=== PATIENT | female | born 1960 | race Caucasian/White ===

== ENCOUNTER → 2024-06-17 13:48 | Outpatient (REF) | payer MEDICARE, MEDICAID, SELFPAY | LOC: ANHLAB 13:48 | PROVIDERS: PCP Family Medicine; Visit Provider Plastic Surgery | DX: D04.4 Carcinoma in situ of skin of scalp and neck (principal) | CPT/HCPCS: 88305 ==

== ENCOUNTER 2025-03-23 11:01 | Outpatient (CLI) | payer MEDICARE, MEDICAID, SELFPAY ==
--- OUTSIDE RECORDS SUMMARY | 2024-05-13 12:30 | XMS_ITS ---
Author Organization [facility] [place] ([address]) Address [address] [place] [address] Care Team Providers Care Promotor Group Ticket Sales Name Role Phone Dr. 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
--- NOTE | 2025-03-23 11:30 | ECG_ITS ---
Test Date: 2025-03-23 11:24:08 Measurements Intervals Polo Rate: 69 P: 4 IN: 166 QRS: -35 QRSD: 98 T: -19 QT: 397 QTc: 428 Interpretive Statements SINUS RHYTHM LEFT AXIS DEVIATION LOW QRS VOLTAGE IN PRECORDIAL LEADS POSSIBLE ANTERIOR MYOCARDIAL INFARCTION CONSIDER INFERIOR INFARCT, AGE INDETERMINATE BASELINE ARTIFACT- I, II, III, AVR, AVL, AVF, V3-V6 ABNORMAL ECG No previous ECG available for comparison Electronically Signed On 03-23-2025 11:46:56 CDT by Jabari Jeff D.O.
--- OUTSIDE RECORDS SUMMARY | 2025-03-23 11:40 | XMS_ITS | Encounter Summary ---
Author Organization [facility] Address [address] [place] [address] Phone Care Team Providers Care Breakdown Worker Name Role Phone Giovany Wilder MD Primary Care Provider [phone] Reason for Referral * Radiology Services (Routine) - Closed Specialty Diagnoses / Procedures Referred By Zacarias t Referred To Contact Radiology Diagnoses Angina pectoris Encounter for preprocedural cardiovascular examination Procedures EKG 12 LEAD Ann Carl MD Phone: tel: fax: Referral ID Status Reason Start Date Expiration Date Visits Re quested Visits Authorized [id number] Closed 10/13/2020 1 1 TH POLICY NURSE Encounter Details Date Type Department Care Team (Latest Contact Info) Description 10/13/2020 Transcribe Orders [facility] Preop/Pacu II [address] [place] [address] Ann Carl MD [address] [facility] [place] [address] Pre-op testing (Primary Dx); Angina pectoris (HCC); Encounter for preprocedural cardiovascular examination Social History Tobacco Use Types Packs/Day Years Used Date Smoking Tobacco: Former Cigarettes 1 15 1 986 - 2000 Smokeless Tobacco: Never Alcohol Use Standard Drinks/Week Comments Never 0 (1 standard drink = 0.6 oz pur e alcohol) Sexually Active [employer] Partners Comments Yes Male Comments Unknown Sex and Gender Information Value Date Recorded Sex Assigned at Not on file Legal Sex Female 7:59 PM CDT Gender Identity Not on file Sexual Orientation Not on file COVID-19 Exposure Response Date Recorded In the last month, have you been in contact with someone who was confirmed or suspected to have Coronavirus / COVID-19? No / Unsure 10/16/2020 11:29 AM CDT documented as of this encounter Plan of Treatment Not on file documented as of this encounter Results * EKG 12 LEAD (10/16/2020 11:51 AM CDT) Ventricular Rate BPM EXTERNAL EKG Atrial Rate BPM EXTERNAL EKG P-R Interval 118 ms EXTERNAL EKG QRS Duration 86 ms EXTERNAL EKG Q-T Duration 434 ms EXTERNAL EKG QTC CALCULATION 495 ms EXTERNAL EKG P Mcconnell 4 degrees EXTERNAL EKG R Mcconnell -27 degrees EXTERNAL EKG T Mcconnell -26 degrees EXTERNAL EKG 10/16/2020 11:5 1 AM CDT Impressions EXTERNAL EKG - 10/18/2020 11:45 AM CDT Sinus rhythm Leftward axis Possible extensive infarct - age undetermined Comparison Summary: No serial comparison made Summary: Abnormal ECG Confirmed by [place] [id number] on 10/18/2020 11:45:14 AM Narrative Procedure Note Ann Carl MD - 10/18/2020 IMPRESSION: Sinus rhythm Leftward axis Possible extensive infarct - age undetermined Comparison Summary: No serial comparison made Summary: Abnormal ECG Confirmed by [place] [id number] on 10/18/2020 11:45:14 AM us Ann Carl MD IMG ECG ORDERABLES Final R esult EXTERNAL EKG * SARS-COV-2 BY MOLECULAR (10/16/2020 11:45 AM CDT) SARSCOV2 NOT DETECTED (Referen ce Range for this test is Not Detected ) [facility] THERMOFISHER FAST DX 10/17/2020 7:27 AM CDT [facility] Comment:This test was perfor med by a RT-PCR method. Other NASOPHARYNGEAL STRUCTURE / Unknown Non-Phlebotomy Collection / Unknown 10/16/2020 11:45 AM CDT 10/16/2020 12:09 PM CDT Narrative [facility] - 10/17/2020 7:27 AM CDT Authorized Fact Sheets about this test for providers and patients are available at: https://www.fda.gov/medical-devices/vkiozrbmb-juwnviffbl-gcsstzc-devices/emergen -us e-authorizations us Ann Carl MD MICROBIOLOGY - GENERAL ORD ERABLES Final Result [facility] [address] [place] [address], [place] * PROTIME (PT) (PROTHROMBIN TIME) (10/16/2020 11:45 AM CDT) PROTIME-PATIENT 13.5 11.6 - 14.8 sec 10/16/2020 12:27 PM CDT [facility] INR 1.1 0.9 - 1.2 10/16/2020 12:27 PM CDT [facility] Comment: Therapeutic Ranges INR = 2.0-3.0: Venous thromb, atrial fib, pul embolism, tissue heart valve, ami. INR = 2.5-3.5: Mechanical heart valve Critical value for INR is >/= 4.5 Blood Venipuncture / Unknown 10/16/2020 11:45 AM CDT 10/16/2020 12:12 PM CDT us Ann Carl MD HEMATOLOGY ORDERABLES Rosa l Result [facility] [address] [place] [address] * (ABNORMAL) BASIC METABOLIC PANEL W/ CALCIUM TOTAL (10/16/2020 11:45 AM CDT) SODIUM 138 136 - 144 mmol/L 10/16/2020 1:03 PM [facility] POTASSIUM 3.3(L) 3.5 - 5.1 mmol/L 10/16/2020 1:03 PM T [facility] CHLORIDE 101 100 - 110 mmol/L 10/16/2020 1:03 PM [facility] CO2, VENOUS 27 22 - 32 mmol/L 10/16/2020 1:03 PM [facility] ANION GAP 13.3 8.0 - 20.0 mmol/L 10/16/2020 1:03 PM [facility] GLUCOSE 197(H) 70 - 99 mg/dL 10/16/2020 1:03 PM [facility] BUN 29(H) 8 - 23 mg/dL 10/16/2020 1:03 PM [facility] CREATININE, BLOOD 1.42(H) 0.60 - 1.10 mg/dL 10/16/2020 1:03 PM [facility] BUN/CREATININE RATIO 20 12 - 20 ratio 10/16/2020 1:03 PM [facility] CALCIUM 9.6 8.9 - 10.3 mg/dL 10/16/2020 1:03 PM [facility] GFR, EST. NONAFRICAN 38(L) >=60 10/16/2020 1:03 PM [facility] GFR, EST. 46(L) >=60 10/16/2020 1:03 PM [facility] Comment: Creatinine Clearance is the preferred criteria for selecting drug dose adjustments in renally impaired patients. The GFR is provided as additional pertinent clinical information. GFR is reported in mL/min/1.73 sq m. IS THE PATIENT REQUIRED TO BE FASTING? No 10/16/2020 1:03 PM [facility] Blood Venipuncture / Unknown 10/16/2020 11:45 AM CDT 10/16/2020 12:12 PM CDT us Ann Carl MD CHEMISTRY ORDERABLES Final Result [facility] [address] [place] [address] documented in this encounter Visit Diagnoses Diagnosis Pre-op testing- Primary Preoperative examination, unspecified Angina pectoris Other and unspecified angina pectoris Encounter for preprocedural cardiovascular examination Pre-operative cardiovascular examination Angina pectoris Other and unspecified angina pectoris Encounter for preprocedural cardiovascular examination Pre-operative cardiovascular examination documented in this encounter Care Teams Breakdown Worker Relationship Specialty Start Date End Date Giovany Wilder MD [facility] [place] [address] PCP - General Family Medicine 10/16/20 documented as of this encounter
--- OUTSIDE RECORDS SUMMARY | 2025-03-23 11:40 | XMS_ITS | Encounter Summary ---
Author Organization [facility] [id number] [facility] Address [address] [place] [phone] Phone Care Team Providers Care Skates Operator Name Role Phone Giovany Wilder MD Primary Care Provider [phone] Reason for Visit * Reason Comments Med Change Request Encounter Details Date Type Department Care Team (Late st Contact Info) Description 03/03/2024 Refill [place] [facility] [employer] [employer] [address] [address] Tirso East DO [address] [address] Social History Tobacco Use Types Packs/Day Years Used Date Smoking Tobacco: Former Alcohol Use Standard Drinks/Week Comments Yes 0 (1 standard drink = 0.6 oz pure alcohol) Alcoholic Drinks/day: Occasional social drink Comments Unknown Sex and Gender Information Value Date Recorded Sex Assigned at Not on file Legal Sex Female 2:50 PM EDT Gender Identity Not on file Sexual Orientation Not on file documented as of this encounter Plan of Treatment Upcoming Encounters Date Type Department Care Team (Late st Contact Info) Description 05/05/2025 2:15 PM CDT Office Visit [place] [facility] [address] [place] [address] Tirso East DO 1265 [facility] 1 [place] [address] documented as of this encounter Visit Diagnoses Not on filedocumented in this encounter Care Teams Skates Operator Relationship Specialty Start Date End Date Giovany Wilder MD [address] [place] [address] PCP - General Family Medicine 01/10/23 documented as of this encounter
--- OUTSIDE RECORDS SUMMARY | 2025-03-23 11:40 | XMS_ITS | Encounter Summary ---
Author Organization [facility] [employer] [facility] Address [address] [place] [phone] Phone Care Team Providers Care Spring Former Hand Name Role Phone Giovany Wilder MD Primary Care Provider [phone] Reason for Visit * Reason Comments Med Refill Encounter Details Date Type Department Care Team (Late st Contact Info) Description 02/15/2021 [facility]ill [place] [facility] [address] [address] Tirso East DO [address] [address] Social History Tobacco Use Types [...] Description 05/05/2025 2:15 PM CDT [facility] [place] [facility] [address] [place] [address] Tirso East DO 1265 [facility] 1 [place] [address] documented as of this encounter Visit Diagnoses Not on filedocumented in this encounter Care Teams Spring Former Hand Relationship Specialty Start Date End Date Giovany Wilder MD [address] [place] [address] PCP - General Family Medicine 01/10/23 documented as of this encounter
--- OUTSIDE RECORDS SUMMARY | 2025-03-23 11:40 | XMS_ITS | Clinical Summary ---
Author Organization [facility] Address [address] [address] Care Team Providers Care Splicer Machine Operator Name Role Phone Giovany Wilder MD Primary Care Provider [phone] Medications dexamethasone (DECADRON) 1 MG tablet Take 1 tablet (1 mg total) by mouth every night 1 tablet 2 Active sodium bicarbonate 650 MG tablet TAKE 1 TABLET BY MOUTH TWICE A DAY 180 tablet 1 2 Active ALPRAZolam (XANAX) 0.25 MG tablet Take 1 tablet (0.25 mg total) by mouth at night if needed for anxiety 30 tablet 1 3 Active metoprolol succinate XL (TOPROL XL) 25 MG 24 hr tablet TAKE 1 TABLET BY MOUTH EVERY NIGHT, DO NOT CRUSH OR CHEW 90 tablet 1 3 Active torsemide (DEMADEX) 10 MG tablet Take 1 tablet (10 mg total) by mouth 3 times weekly: Fri and Friday morning 45 tablet 1 4 Active spironolactone (ALDACTONE) 25 MG tablet Take 1 tablet (25 mg total) by mouth 1 (one) time each day in the morning 90 tablet 1 4 Active torsemide (DEMADEX) 20 MG tablet TAKE 1 TABLET BY MOUTH 1 TIME EACH DAY IN THE MORNING. 90 tablet 1 5 Active Semaglutide, 1 MG/DOSE, (Ozempic, 1 MG/DOSE,) 2 MG/1.5ML solution pen-injector Inject 1 mg under the skin per week 12 mL 1 5 Active calcitriol (ROCALTROL) 0.5 MCG capsule TAKE 1 CAPSULE (0.5 MCG TOTAL) BY MOUTH ONCE DAILY 90 capsule 1 5 Active paricalcitol (ZEMPLAR) 1 MCG capsule TAKE 1 CAPSULE (1 MCG TOTAL) BY MOUTH EVERY MORNING 30 capsule 5 5 Active paricalcitol (ZEMPLAR) 1 MCG capsule TAKE 1 CAPSULE (1 MCG TOTAL) BY MOUTH EVERY MORNING 90 capsule 1 5 025 Discontinued calcitriol (ROCALTROL) 0.5 MCG capsule Take 1 capsule (0.5 mcg total) by mouth 1 (one) time each day 90 capsule 1 5 025 Discontinued Encounters Date Type Department Care Team Description 03/14/[address] [address] Tirso East DO 03/11/[address] [address] Tirso East DO from Last 3 Months Social History Tobacco Use Types Packs/Day Years Used Date Smoking Tobacco: Former Alcohol Use Standard Drinks/Week Comments Yes 0 (1 standard drink = 0.6 oz pure alcohol) Alcoholic Drinks/day: Occasional social drink Comments Unknown Sex and Gender Information Value Date Recorded Sex Assigned at Not on file Legal Sex Female 2:50 PM EDT Gender Identity Not on file Sexual Orientation Not on file Last Filed Vital Signs Vital Sign Reading Time Taken Comments Blood Pressure 130/80 11/04/2024 2:07 PM CDT Pulse 84 11/04/2024 2:07 PM CDT Temperature 36.7 C (98 F) 11/04/2024 2:07 PM CDT Respiratory Rate 18 11/04/2024 2:07 PM CDT Oxygen Saturation 99% 11/04/2024 2:07 PM CDT Inhaled Oxygen Concentration - - Weight 61.2 kg (135 lb) 11/04/2024 2:07 PM CDT Height 157.5 cm (5' 2) 10/04/2022 10:08 AM RESOURCE PROTECTION SPECIALIST Body Mass Index 24.69 10/04/2022 10:08 AM RESOURCE PROTECTION SPECIALIST Plan of Treatment Upcoming Encounters Date Type Department Care Team (Late st Contact Info) Description 05/05/2025 2:15 PM CDT Office Visit [facility] [address] [place] [address] [address] [place] [phone] Tirso East DO 1265 [facility] [address] [place] [address] Health Maintenance Due Date Last Done Comments Breast Cancer Screening 1960 Pneumococcal Vaccine: 50+ Ye ars (1 of 2 - PCV) 1978 Colorectal Cancer Screening: Annual FOBT 2008 Colorectal Cancer Screening: Sigmoidoscopy 2008 Hepatitis B Vaccine (1 of 3 - Risk 3-dose series) 2019 12/03/2017, 07/04/2017, 06/05/2017 Diabetes: Ophthalmology Exam 01/15/2021 Diabetes: Pedal Pulse Checked 01/15/2021 Diabetes: Sensory Foot Exam 01/15/2021 Diabetes: Visual Foot Exam 01/15/2021 Diabetes: Hemoglobin A1C 02/21/202511/22/2 025, 05/21/2024, 02/03/2024, Additional history exists Influenza Vaccine (#1) 2025 4, 08/04/2022, 05/10/2022, Additional history exists Colorectal Cancer Screening: Colonoscopy 10/02/2032 10/02/2022 Insurance Medicaid [place] [facility] Medicare Care Teams Splicer Machine Operator Relationship Specialty Start Date End Date Giovany Wilder MD [address] [address] PCP - General Family Medicine 01/10/23
--- OUTSIDE RECORDS SUMMARY | 2025-03-23 11:40 | XMS_ITS | Encounter Summary ---
Author Organization [facility] [employer] [facility] Address [address] [place] [phone] Phone Care Team Providers Care Lottery Manager Name Role Phone Giovany Wilder MD Primary Care Provider [phone] Reason for Visit * Reason Comments Med Refill Encounter Details Date Type Department Care Team (Late st Contact Info) Description 01/17/2021 [facility]ill [place] [facility] [address] [phone] Tirso East DO [address] [address] Social History Tobacco Use Types [...] Description 05/05/2025 2:15 PM CDT Office Visit [place] [facility] [address] [phone] Tirso East DO 1265 [facility] 1 [place] [address] documented as of this encounter Visit Diagnoses Not on filedocumented in this encounter Care Teams Lottery Manager Relationship Specialty Start Date End Date Giovany Wilder MD [address] [place] [address] PCP - General Family Medicine 01/10/23 documented as of this encounter
--- OUTSIDE RECORDS SUMMARY | 2025-03-23 11:40 | XMS_ITS | Encounter Summary ---
Author Organization [facility] Address [address] [place] [phone] Phone Care Team Providers Care Washer Hand Name Role Phone Giovany Wilder MD Primary Care Provider [phone] Reason for Visit * Reason Comments Med Refill Encounter Details Date Type Department Care Team (Late st Contact Info) Description 01/24/2021 Refill [place] [email or web address] [place] [phone] Tirso East DO [address] [address] Social History Tobacco Use Types [...] Description 05/05/2025 2:15 PM CDT Office Visit [place] [email or web address] [email or web address] [address] [place] [address] Tirso East DO 1265 [facility] 1 [place] [address] documented as of this encounter Visit Diagnoses Not on filedocumented in this encounter Care Teams Washer Hand Relationship Specialty Start Date End Date Giovany Wilder MD [address] [place] [address] PCP - General Family Medicine 01/10/23 documented as of this encounter
--- OUTSIDE RECORDS SUMMARY | 2025-03-23 11:40 | XMS_ITS | Clinical Summary ---
Author Organization [facility] A dministration Address [address] [place] [address] Care Team Providers Care Linen Room Houseperson Name Role Phone Unavailable Primary Care Provider Unavailabl e Allergies Active Allergy Reactions Criticality Noted Date Comments Adhesive Tape-Silicones Rash Low 10/27/2023 Cephalexin Hives High 10/27/2023 Cyclobenzaprine Dizziness Low 10/27/2023 Divalproex Muscle Pain Low 10/27/2023 Hydromorphone Nausea and Vomiting Low 10/27/2023 Latex Itching Low 10/27/2023 Naltrexone Itching Low 10/27/2023 Nsaids (Non-Steroidal Anti-Inflammatory Drug) Renal Dysfunctions Medium 10/27/2023 Penicillins Unknown 10/27/2023 Pentazocine Hives High 10/27/2023 Propranolol Dizziness Low 10/27/2023 Rizatriptan Itching Low 10/27/2023 Sulfa (Sulfonamide Antibiotics) Hives High 10/03 Sumatriptan Dizziness Low 10/27/2023 Talwin Compound Hives High 10/27/2023 Topiramate Itching Low 10/27/2023 Tramadol Nausea and Vomiting Low 10/27/2023 Venlafaxine Hives High 10/27/2023 Medications albuterol sulfate HFA 90 mcg/actuation aerosol inhaler Take 2 Puffs by inhalation every 6 hours as needed for Shortness of Breath. Active aspirin (ECOTRIN EC) 81 mg Tablet, Delayed Release (E.C.) Take 81 mg by mouth daily. Active benzonatate (TESSALON) 100 mg capsule Take 100 mg by mouth 3 times daily. Active cholecalciferol , Vitamin D3, (VITAMIN D3) 25 mcg (1,000 unit) Capsule Take by mouth daily. Active calcitRIOL (ROCALTROL) 0.25 mcg capsule Take 0.25 mcg by mouth daily. Active famotidine (PEPCID) 10 mg tablet Take 10 mg by mouth 2 times daily. Active FLUoxetine (PROzac) 10 mg capsule Take 10 mg by mouth daily. Active lamoTRIgine (LaMICtal) 25 mg tablet Take 25 mg by mouth 2 times daily. Active levothyroxine 25 mcg tablet Take 25 mcg by mouth daily in the morning. Active metoprolol succinate (TOPROL XL) 25 mg Extended Release 24 hour tablet Take 25 mg by mouth daily. Active montelukast (SINGULAIR) 10 mg tablet Take 10 mg by mouth daily at bedtime. Active ondansetron (ZOFRAN ODT) 4 mg Tablet, Rapid Dissolve Take 4 mg by mouth every 8 hours as needed for Nausea/Emesis. Dissolve tablet on top of tongue, then swallow with saliva. Active oxyCODONE-aceta minophen (PERCOCET) 7.5-325 mg Tablet Take 1 Tablet by mouth every 6 hours as needed for Pain, Moderate. Active pantoprazole (PROTONIX) 40 mg Tablet, Delayed Release (E.C.) Take 40 mg by mouth daily. Active paricalcitoL (ZEMPLAR) 1 mcg Capsule Take 1 mcg by mouth daily. Active protriptyline (VIVACTIL) 5 mg tablet Take 5 mg by mouth 3 times daily. Active spironolactone (ALDACTONE) 100 mg tablet Take 100 mg by mouth daily. Active torsemide (DEMADEX) 20 mg tablet Take 20 mg by mouth daily. Active traZODone (DESYREL) 50 mg tablet Take 50 mg by mouth daily at bedtime. Active dulaglutide (Trulicity) 1.5 mg/0.5 mL injection Inject 1.5 mg by subcutaneous injection every 7 days. Active umeclidinium-vi lanteroL (ANORO ELLIPTA) 62.5-25 mcg/actuation Disk with Device Take 1 Puff by inhalation daily in the morning. Active Zonisamide (ZONEGRAN) 100 mg capsule Take 100 mg by mouth daily. Active linaCLOtide (LINZESS) 72 mcg Capsule capsule Take 72 mcg by mouth daily before breakfast. Active diazePAM (Valium) 5 mg tabletIndicatio ns:Neck pain Take 1 tab PO one hour prior to MRI and then one upon arrival to MRI. 2 Tablet Active Active Problems No known active problems Encounters Date Type Department Care Team Description 12/22/2024 External Device Data STL ABSTRACTION Provider, Abstract 12/21/2024 External Device Data STL ABSTRACTION Provider, Abstract from Last 3 Months Family History Medical History Relation Name Comments Cancer Father Diabetes Father Heart Disease Father High Cholesterol Father Hypertension Father Hypertension Maternal Aunt Cancer Maternal Grandfather Other Maternal Grandfather tobacco use Hypertension Maternal Grandmother Cancer Maternal Uncle Blood Clots Mother Cancer Mother Diabetes Mother Heart Disease Mother Other Mother tobacco use Heart Disease Paternal Grandfather Hypertension Paternal Grandfather Other Paternal Grandfather tobacco use Hypertension Paternal Grandmother Diabetes Sister Heart Disease Sister High Cholesterol Sister Hypertension Sister Other Sister tobacco use Relation Name Status Comments Father Maternal Aunt Alive Maternal Grandfather Maternal Grandmother Maternal Uncle Alive Mother Paternal Grandfather Paternal Grandmother Sister Social History Tobacco Use Types Packs/Day Years Used Date Smoking Tobacco: Never Smokeless Tobacco: Former Quit: 1998 Tobacco Cessation:Counseling Given: Not Answered Comments:Quit smoking in 1995, was 1 pack a day Alcohol Use Standard Drinks/Week Comments Never 0 (1 standard drink = 0.6 oz pur e alcohol) Comments Unknown Sex and Gender Information Value Date Recorded Sex Assigned at Not on file Legal Sex Female 1:54 AM RISK MANAGEMENT INTERN Gender Identity Not on file Sexual Orientation Not on file Last Filed Vital Signs Vital Sign Reading Time Taken Comments Blood Pressure 128/87 01/06/2024 10:50 AM CDT Pulse 82 01/06/2024 10:50 AM CDT Temperature 36.5 C (97.7 F) 01/06/2024 10:50 AM CDT Respiratory Rate - - Oxygen Saturation - - Inhaled Oxygen Concentration - - Weight 56.3 kg (124 lb 3.2 oz) 01/06/2024 10:50 AM CDT Height 157.5 cm (5' 2) 01/06/2024 10:50 AM CDT Body Mass Index 22.72 01/06/2024 10:50 AM CDT Plan of Treatment Health Maintenance Due Date Last Done Comments DIABETES ANNUAL RETINAL EXAM 1977 DIABETES MICROALBUMIN ANNUAL SCREEN 1977 LDL CHOLESTEROL ANNUAL 1977 DTAP/TDAP/TD VACCINES (1 - Tdap) 1978 PNEUMOCOCCAL VACCINE 50+ YEA RS (1 of 2 - PCV) 1978 FIT-DNA Q 3 years 2004 FIT/FOBT Q 1 year 2004 Flex Sig/CT Colonography Q 5 years 2004 ZOSTER VACCINE (1 of 2) 2009 RSV VACCINE (60+ or ) (1 - Risk 60-74 years 1-dose series) 2019 DIABETES ANNUAL FOOT EXAM 07/08/2023 07/08/2022 DIABETES HBA1C Q 6 MONTHS 05/21/20242023, 05/21/2023, 12/24/2022 BREAST CANCER SCREENING 12/26/2024 12/27/19, 12/27/2023, 12/27/2020, Additional history exists INFLUENZA VACCINE (#1) 2025 OSTEOPOROSIS SCREENING 05/23/2025 05/23/2020, 2017 COLORECTAL SCREENING 10/02/2032 10/02/2022, 10/02/2022, 09/18/2015, Additional history exists Colorectal Cancer Screening 10/02/2032 Insurance DUAL COMPLETE PPO [facility]NP [facility] [id number] [address] [place]ID [place]
--- OUTSIDE RECORDS SUMMARY | 2025-03-23 11:40 | XMS_ITS | Clinical Summary ---
Author Organization [facility] Address [address] [address] Phone Care Team Providers Care Member Of The Legislative Assembly Name Role Phone Giovany Wilder MD Primary Care Provider Allergies Active Allergy Reactions Criticality Noted Date Comments Hydromorphone Vomiting 10/19/2020 Divalproex Sodium Other (see Comments) 10/20/19 21 trimmers Morphine-Naltrexone Itching 10/19/2020 Hydrocodone Other (see Comments) 10/19/2020 Dizzy and fall Cephalexin Itching 10/19/2020 Penicillins Unknown 10/19/2020 Propranolol Itching 10/19/2020 Rizatriptan Itching 10/19/2020 Sulfa Antibiotics Itching 10/19/2020 Sumatriptan Itching 10/19/2020 Pentazocine Itching 10/19/2020 Topiramate Itching 10/19/2020 Tramadol Hives 10/19/2020 Venlafaxine Itching 10/19/2020 Medications isosorbide mononitrate (IMDUR) 30 MG TABLET SR 24 HR Take 30 mg by mouth every morning. Active vitamin b-12 (CYANOCOBALAMIN ) 100 MCG Tablet Take 100 mcg by mouth daily. Active busPIRone (BUSPAR) 10 MG Tablet Take 10 mg by mouth 2 times daily. Active aspirin EC 81 MG Tablet Delayed Response Take 81 mg by mouth daily. Active hydrOXYzine (ATARAX) 50 MG Tablet Take 50 mg by mouth 4 times daily. Active torsemide (DEMADEX) 10 MG Tablet Take 10 mg by mouth daily. Active spironolactone (ALDACTONE) 25 MG Tablet Take 25 mg by mouth daily. Active zonisamide (ZONEGRAN) 25 MG Capsule Take 25 mg by mouth daily. Active FLUoxetine (PROZAC) 40 MG Capsule Take 40 mg by mouth daily. Active protriptyline (VIVACTIL) 5 MG Tablet Take 5 mg by mouth nightly. Active felodipine (PLENDIL) 2.5 MG TABLET SR 24 HR Take 2.5 mg by mouth daily. Active omeprazole (PriLOSEC) 40 MG CAPSULE DELAYED RELEASE Take 40 mg by mouth Every other day. Active Multiple Vitamin (MULTIVITAMIN PO) Take by mouth daily. Active paricalcitol (ZEMPLAR) 1 MCG Capsule Take 1 mcg by mouth daily. Active Cholecalciferol (VITAMIN D3 PO) Take 5,000 Units by mouth daily. Active Dulaglutide (Trulicity) 3 MG/0.5ML Solution Pen-injector 3 mg by Subcutaneous route every 7 days. Active tiZANidine (ZANAFLEX) 4 MG Tablet Take 4 mg by mouth every 6 hours as needed. Active oxyCODONE 10 MG Tablet Take 10 mg by mouth every 6 hours as needed for Moderate or more severe pain. Active ticagrelor (BRILINTA) 90 MG Tablet Take 1 Tablet by mouth 2 times daily. 180 Tablet 3 1 Active Family History Medical History Relation Name Comments Anxiety disorder Father Congestive Heart Failure Father Depression Father Diabetes Father Heart Attack Father Congestive Heart Failure Mother Diabetes Mother Relation Name Status Comments Father Mother Social History Tobacco Use Types Packs/Day Years Used Date Smoking Tobacco: Former Cigarettes 1 15 1 986 - 2000 Smokeless Tobacco: Never Alcohol Use Standard Drinks/Week Comments Never 0 (1 standard drink = 0.6 oz pur e alcohol) Sexually Active Control Partners Comments Yes Male Comments No Sex and Gender Information Value Date Recorded Sex Assigned at Not on file Legal Sex Female 7:59 PM CDT Gender Identity Not on file Sexual Orientation Not on file Last Filed Vital Signs Vital Sign Reading Time Taken Comments Blood Pressure 133/73 04/28/2023 9:07 PM CDT Pulse 88 04/28/2023 9:07 PM CDT Temperature 35.8 C (96.5 F) 04/28/2023 9:07 PM CDT Respiratory Rate 16 04/28/2023 9:07 PM CDT Oxygen Saturation 100% 04/28/2023 9:07 PM CDT Inhaled Oxygen Concentration - - Weight 54.4 kg (120 lb) 04/28/2023 9:07 PM CDT Height 157.5 cm (5' 2) 04/28/2023 9:07 PM CDT Body Mass Index 21.95 04/28/2023 9:07 PM CDT Plan of Treatment Health Maintenance Due Date Last Done Comments DEXA Bone Density 1959 Hepatitis C Virus (HCV) Screening 1959 Mammogram 1959 TdaP Immunization 1959 Cologuard 2004 Colonoscopy 2004 Colorectal Cancer Screening 2004 Immunochemical Fecal Occult Blood 2004 Pneumococcal Immunization (50+ years) (1 of 1 - PCV) 2009 Zoster Immunization (1 of 2) 2009 SARS-COV-2 Immunization (1 - ) 04/04/2024 Influenza Immunization (#1) 04/04/20250 02/2022, 05/04/2021, 05/04/2020, Additional history exists Respiratory Syncytial Virus (RSV) Immunization (Adult) (1 - 1-dose 75+ series) 2034 Hepatitis B Immunization Completed 018, 07/04/2017, 06/05/2017 Human Papillomavirus (HPV) Immunization Aged Out No longer eligible based on patient's age to complete this topic Meningococcal Immunization (ACWY) Aged Out No longer eligible based on patient's age to complete this topic Rotavirus Immunization Aged Out No lo nger eligible based on patient's age to complete this topic Medical Devices Implanted Type Area Splitting Machine Operator Helper Device Identifier Shelf Expiration Date Model / Serial / Lot Stent Coronary Alina Xience Everolimus Eluting 2.3tle33th - [id number] Implanted:Qty: 1 on 10/19/2020 by Ann Carl MD at [facility] IMPLANT N/A: Coronary [employer] 08/04/2021 [id number] / / [id number] Device Clsr 70cm 6fr Angio-Seal Vip .035in Vasc Collagen Valuelink Gw Insertion Shligia Ware - [id number] Implanted:Qty: 1 on 10/19/2020 by Ann Carl MD at [facility] IMPLANT Right: Johnie DavenportChronogolf 07/03/2021 [id number] / [id number] Insurance MEDICAID [place] MEDICARE C [facility] MEDICARE C [facility] [place]ICAID [place] Care Teams Member Of The Legislative Assembly Relationship Specialty Start Date End Date Giovany Wilder MD [address] [place] [address] PCP - General Family Medicine 10/16/20
--- OUTSIDE RECORDS SUMMARY | 2025-03-23 11:40 | XMS_ITS | Encounter Summary ---
Author Organization [facility] [employer] [facility] Address [address] [place] [phone] Phone Care Team Providers Care Train Clerk Name Role Phone Giovany Wilder MD Primary Care Provider [phone] Encounter Details Date Type Department Care Team (Late st Contact Info) Description 04/08/2024 Office Communication [facility] [address] [address] Rosario Salvador CMA [address] [facility] [address] [place] [address] Social History Tobacco Use Types Packs/Day [...] on file documented as of this encounter Miscellaneous Notes * Telephone Encounter - Rosario Salvador CMA - 04/09/2024 11:07 AM CDT ok * Telephone Encounter - Tirso East DO - 04/08/2024 4:09 PM CDT Tell her to use the diuretics only on Friday, Friday and friday documented in this encounter Plan of Treatment Upcoming Encounters Date Type Department Care Team (Late st Contact Info) Description 05/05/2025 2:15 PM CDT Office Visit [facility] [address] [place] [phone] Tirso East DO [address] [place] [phone] documented as of this encounter Visit Diagnoses Not on filedocumented in this encounter Care Teams Train Clerk Relationship Specialty Start Date End Date Giovany Wilder MD [address] [address] PCP - General Family Medicine 01/10/23 documented as of this encounter
--- OUTSIDE RECORDS SUMMARY | 2025-03-23 11:40 | XMS_ITS | Patient Health Record ---
Author Organization [facility] [place] ([address]) Address [address] [place] [address] Care Team Providers Care Director Of Managed Care Name Role Phone Dr. Malik Bowles Unavailable [phone] Nhi Olvera Unavailable [phone] Reason For Referral No Information Plan Of Treatment No Information Insurance Providers Payer Name Payer Address Payer Phone Subscriber Number Group Number Insured Name Patient Relationship to Insured Coverage Start Date Coverage End Date UHC Medicare [address] [address] [place] [address] [id number] Catina Hui Self - patient is the insured
--- OUTSIDE RECORDS SUMMARY | 2025-03-23 11:40 | XMS_ITS | Clinical Summary ---
Author Organization [facility] [employer] Address [address] [place] [address] Care Team Providers Care Residency Program Coordinator Name Role Phone Giovany Wilder MD Primary Care Provider [phone] Source Comments [facility],non-[facility] Affiliates and Associated Physician Practices is amultiple site organization consisting of ambulatory clinics and hospital sitesin [place], [place], [place] and [place]. This disclosure is being madepursuant to the Care Everywhere program and may not contain all information available regarding this patient. Last updated 18.[facility] Social History Tobacco Use Types Packs/Day Years Used Date Smoking Tobacco: Never Assessed Comments Unknown Sex and Gender Information Value Date Recorded Sex Assigned at Not on file Legal Sex Female 12:04 PM CDT Gender Identity Not on file Sexual Orientation Not on file Plan of Treatment Health Maintenance Due Date Last Done Comments BONE DENSITY TESTING 1959 COLOGUARD (AGES 45-75) - COL ON CA SCREENING 1959 COLON MONITORING 1959 COLONOSCOPY - COLON CA SCREENING 1959 CT COLONOGRAPHY - COLON CA SCREENING 1959 Colorectal Cancer Screening 1959 FIT - COLON CA SCREENING 1959 FLEX SIG - COLON CA SCREENING 1959 LIPID TESTING 1959 MAMMOGRAM 1959 HEPATITIS C SCREENING 03/01/1977 DTAP/TDAP/TD VACCINES (1 - Tdap) 1978 PNEUMOCOCCAL VACCINE 50+ (1 of 1 - PCV) 2009 ZOSTER VACCINE (1 of 2) 2009 COVID-19 VACCINE ( - 2023-2 5 season) 2024 DEPRESSION SCREENING 08/04/2024 MEDICARE AWV CALENDAR YEAR 2024 INFLUENZA VACCINE (#1) 2025 05/04/2019 Respiratory Syncytial Virus (RSV) Vaccine Pt: or over 60 yrs (1 - 1-dose 75+ series) 2034 HEPATITIS B VACCINE Aged Out No longe r eligible based on patient's age to complete this topic HIB VACCINE Aged Out No longer eligi ble based on patient's age to complete this topic HPV VACCINE Aged Out No longer eligi ble based on patient's age to complete this topic MENINGOCOCCAL (Group B) VACC INE SHARED DECISION-MAKING Aged Out No longer eligibl e based on patient's age to complete this topic MENINGOCOCCAL GROUPS A/C/Y/W VACCINE Aged Out No longer eligible b ased on patient's age to complete this topic Insurance MEDICARE [facility] [place] SELF PAY NO INSURANCE Member Subscriber Plan / Payer (Ef fective for All Dates) Name:Neha Hui Member ID:Not on file Relation to Subscriber:Not on file Name:NEHA HUI Subscriber ID:Not on file (Home) Address: [address] [place] [phone] Payer ID:Not on file Group ID:Not on file Type:Self Pay Address: [facility] MEDICARE ADV Care Teams Residency Program Coordinator Relationship Specialty Start Date End Date Giovany Wilder MD PCP - General Family Medicine 05/23/20
[2025-03-23 12:11] LABS: INR 1.1; Prothrombin Time 14.0 Seconds (11.1-14.7)
[2025-03-23 12:12] LABS: Partial Thromboplastin Time 28.4 Seconds (22.3-36.8)
[2025-03-23 12:28] LABS: Anion Gap 9 mmol/L (4-12); Blood Urea Nitrogen 22 mg/dL (7-17); Calcium 8.4 mg/dL (8.4-10.2); Carbon Dioxide 19 mmol/L (22-30); Chloride 112 mmol/L (98-107); Estimated Glomerular Filt Rate 45; Glucose 245 mg/dL (65-110); Potassium 3.7 mmol/L (3.4-5.0); Sodium 140 mmol/L (137-145)
== END 2025-03-23 11:02 | disposition home or self-care (01) ==
LOC: ANHSURGERY 11:05
PROVIDERS: Anesthesiology; PCP Family Medicine; Visit Provider Plastic Surgery
DX: Z01.818 Encounter for other preprocedural examination (principal); R94.31 Abnormal electrocardiogram [ECG] [EKG]; I50.9 Heart failure, unspecified; N18.30 Chronic kidney disease, stage 3 unspecified
CPT/HCPCS: 36415; 80048; 85610; 85730; 93005

== ENCOUNTER 2025-03-24 14:37 | Outpatient (CLI) | payer MEDICARE, MEDICAID, SELFPAY ==
--- OUTSIDE RECORDS SUMMARY | 2024-05-13 12:30 | XMS_ITS ---
Author Organization [facility] [place] ([address]) Address [address] [place] [address] Care Team Providers Care Tire Servicer Name Role Phone Dr. 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
--- OUTSIDE RECORDS SUMMARY | 2025-03-24 14:43 | XMS_ITS | Clinical Summary ---
Author Organization [facility] Address [address] [address] Care Team Providers Care Electrical Engineer Mep Name Role Phone Giovany Wilder MD Primary Care Provider [phone] Medications dexamethasone (DECADRON) 1 MG tablet Take [...] Type Department Care Team Description 03/14/[address] [phone] Tirso East DO 03/11/[address] [phone] Tirso East DO from Last 3 Months [...] 157.5 cm (5' 2) 10/04/2022 10:08 AM E M ASSEMBLER Body Mass Index 24.69 10/04/2022 10:08 AM E M ASSEMBLER Plan of Treatment Upcoming Encounters Date Type Department Care Team (Late st Contact Info) Description 05/05/2025 2:15 PM CDT Office Visit [facility], [facility] [address] [place] [address] [address] [place] [phone] Tirso East DO [address] [facility] [address] [place] [phone] Health Maintenance Due [...] Screening: Colonoscopy 10/02/2032 10/02/2022 Insurance Medicaid [place] [facility] Medicare Care Teams Electrical Engineer Mep Relationship Specialty Start Date End Date Giovany Wilder MD [address] [address] PCP - General Family Medicine 01/10/23
--- OUTSIDE RECORDS SUMMARY | 2025-03-24 14:43 | XMS_ITS | Encounter Summary ---
Author Organization [facility] Address [address] [place] [address] Phone Care Team Providers Care Shape Carver Name Role Phone Giovany Wilder MD Primary Care Provider [phone] Reason for Referral * Radiology Services (Routine) - Closed Specialty Diagnoses / Procedures Referred By Zacarias t Referred To Contact Radiology Diagnoses Angina pectoris Encounter for preprocedural cardiovascular examination Procedures EKG 12 LEAD Ann Carl MD Phone: tel: fax: Referral ID Status Reason Start Date Expiration Date Visits Re quested Visits Authorized [id number] Closed 10/13/2020 1 1 NCE BROKER Encounter Details Date Type Department Care Team (Latest Contact Info) Description 10/13/2020 Transcribe Orders [facility] Preop/Pacu II [address] [place] [address] Ann Carl MD [address] [place] [address] Pre-op testing (Primary Dx); Angina pectoris (HCC); [...] QTC CALCULATION 495 ms EXTERNAL EKG P [place] 4 degrees EXTERNAL EKG R [place] -27 degrees EXTERNAL EKG T [place] -26 degrees EXTERNAL EKG 10/16/2020 11:5 1 AM CDT Impressions EXTERNAL EKG - 10/18/2020 11:45 AM CDT Sinus rhythm Leftward axis Possible extensive infarct - age undetermined Comparison Summary: No serial comparison made Summary: Abnormal ECG Confirmed by [place] [id number] on 10/18/2020 11:45:14 AM Narrative Procedure Note Ann Carl MD - 10/18/2020 IMPRESSION: Sinus rhythm Leftward axis Possible extensive infarct - age undetermined Comparison Summary: No serial comparison made Summary: Abnormal ECG Confirmed by [place] [id number] on 10/18/2020 11:45:14 AM us Ann Carl MD IMG ECG ORDERABLES Final R esult EXTERNAL EKG * SARS-COV-2 BY MOLECULAR (10/16/2020 11:45 AM CDT) SARSCOV2 NOT DETECTED (Referen ce Range for this test is Not Detected ) [facility] THERMOFISHER FAST DX 10/17/2020 7:27 AM CDT [facility] Comment:This test was perfor med by a RT-PCR method. Other NASOPHARYNGEAL STRUCTURE / Unknown Non-Phlebotomy Collection / Unknown 10/16/2020 11:45 AM CDT 10/16/2020 12:09 PM CDT Narrative [facility] - 10/17/2020 7:27 AM CDT Authorized Fact Sheets about this test for providers and patients are available at: https://www.fda.gov/medical-devices/bsqvszffv-parlqmkdkq-tjvurzp-devices/emergen -us e-authorizations us Ann Carl MD MICROBIOLOGY - GENERAL ORD ERABLES Final Result [facility] [address] [place] [address], [place] * PROTIME (PT) (PROTHROMBIN TIME) (10/16/2020 11:45 AM CDT) PROTIME-PATIENT 13.5 11.6 - 14.8 sec 10/16/2020 12:27 PM CDT [facility] INR 1.1 0.9 - 1.2 10/16/2020 12:27 PM CDT [facility] Comment: Therapeutic Ranges INR = 2.0-3.0: Venous thromb, atrial fib, pul embolism, tissue heart valve, ami. INR = 2.5-3.5: Mechanical heart valve Critical value for INR is >/= 4.5 Blood Venipuncture / Unknown 10/16/2020 11:45 AM CDT 10/16/2020 12:12 PM CDT us Ann Carl MD HEMATOLOGY ORDERABLES Rosa l Result [facility] [place] [address] * (ABNORMAL) BASIC METABOLIC PANEL W/ CALCIUM TOTAL (10/16/2020 11:45 AM CDT) SODIUM 138 136 - 144 mmol/L 10/16/2020 1:03 PM [facility] POTASSIUM 3.3(L) 3.5 - 5.1 mmol/L 10/16/2020 1:03 PM T [facility] CHLORIDE 101 100 - 110 mmol/L 10/16/2020 1:03 PM [facility] CO2, VENOUS 27 22 - 32 mmol/L 10/16/2020 1:03 PM [facility] ANION GAP 13.3 8.0 - 20.0 mmol/L 10/16/2020 1:03 PM [facility] GLUCOSE 197(H) 70 - 99 mg/dL 10/16/2020 1:03 PM [facility] BUN 29(H) 8 - 23 mg/dL 10/16/2020 1:03 PM [facility] CREATININE, BLOOD 1.42(H) 0.60 - 1.10 mg/dL 10/16/2020 1:03 PM [facility] BUN/CREATININE RATIO 20 12 - 20 ratio 10/16/2020 1:03 PM [facility] CALCIUM 9.6 8.9 - 10.3 mg/dL 10/16/2020 1:03 PM [facility] GFR, EST. NONAFRICAN 38(L) >=60 10/16/2020 1:03 PM [facility] GFR, EST. 46(L) >=60 10/16/2020 1:03 PM [facility] Comment: Creatinine Clearance is the preferred criteria for selecting drug dose adjustments in renally impaired patients. The GFR is provided as additional pertinent clinical information. GFR is reported in mL/min/1.73 sq m. IS THE PATIENT REQUIRED TO BE FASTING? No 10/16/2020 1:03 PM [facility] Blood Venipuncture / Unknown 10/16/2020 11:45 AM CDT 10/16/2020 12:12 PM CDT us Ann Carl MD CHEMISTRY ORDERABLES Final Result [facility] [place] [address] documented in this encounter Visit Diagnoses Diagnosis Pre-op testing- Primary Preoperative examination, unspecified Angina pectoris Other and unspecified angina pectoris Encounter for preprocedural cardiovascular examination Pre-operative cardiovascular examination Angina pectoris Other and unspecified angina pectoris Encounter for preprocedural cardiovascular examination Pre-operative cardiovascular examination documented in this encounter Care Teams Shape Carver Relationship Specialty Start Date End Date Giovany Wilder MD [facility] [place] [address] PCP - General Family Medicine 10/16/20 documented as of this encounter
--- OUTSIDE RECORDS SUMMARY | 2025-03-24 14:43 | XMS_ITS | Clinical Summary ---
Author Organization [facility] [employer] Address [address] [place] [address] Care Team Providers Care Hot Top Liner Name Role Phone Giovany Wilder MD Primary Care Provider [phone] Source Comments [facility] Affiliates and Associated Physician Practices is amultiple site organization consisting of ambulatory clinics and hospital sitesin [place], [place], [place] and [place]. This disclosure is being madepursuant to the Care Everywhere program and may not contain all information available regarding this patient. Last updated 18.[facility] [employer] Social History Tobacco Use Types Packs/Day Years [...] age to complete this topic Insurance MEDICARE [facility] MEDICAID - [place] SELF PAY NO INSURANCE Member Subscriber Plan / Payer (Ef fective for All Dates) Name:Neha Hui Member ID:Not on file Relation to Subscriber:Not on file Name:NEHA HUI Subscriber ID:Not on file (Home) Address: [address] [place] [id number] Payer ID:Not on file Group ID:Not on file Type:Self Pay Address: [facility] MEDICARE ADV Care Teams Hot Top Liner Relationship Specialty Start Date End Date Giovany Wilder MD PCP - General Family Medicine 05/23/20
--- OUTSIDE RECORDS SUMMARY | 2025-03-24 14:43 | XMS_ITS | Encounter Summary ---
Author Organization [facility] [employer] [facility] Address [address] [place] [phone] Phone Care Team Providers Care Publications Manager Name Role Phone Giovany Wilder MD Primary Care Provider [phone] Reason for Visit * Reason Comments Med Refill Encounter Details Date Type Department Care Team (Late st Contact Info) Description 01/24/2021 Refill [place] [facility] [place] [phone] Tirso East DO [address] [phone] Social History Tobacco Use Types [...] Description 05/05/2025 2:15 PM CDT Office Visit [place] [facility] [address] [place] [address] Tirso East DO 12[address] [facility] 1 [place] [address] documented as of this encounter Visit Diagnoses Not on filedocumented in this encounter Care Teams Publications Manager Relationship Specialty Start Date End Date Giovany Wilder MD [address] [place] [address] PCP - General Family Medicine 01/10/23 documented as of this encounter
--- OUTSIDE RECORDS SUMMARY | 2025-03-24 14:43 | XMS_ITS | Clinical Summary ---
Author Organization [facility] Address [address] [address] Phone Care Team Providers Care Shower Room Attendant Name Role Phone Giovany Wilder MD Primary Care Provider Allergies Active Allergy Reactions Criticality Noted Date Comments Hydromorphone Vomiting 10/19/2020 Divalproex Sodium Other (see Comments) 10/20/19 trimmers Morphine-Naltrexone Itching 10/19/2020 Hydrocodone Other (see [...] this topic Medical Devices Implanted Type Area Aircraft Load Controller Device Identifier Shelf Expiration Date Model / Serial / Lot Stent Coronary Alina Xience Everolimus Eluting [id number] - [id number] Implanted:Qty: 1 on 10/19/2020 by Ann Carl MD at [facility] IMPLANT N/A: Coronary [employer] 08/04/2021 [id number] / / [id number] Device Clsr 70cm 6fr Angio-Seal Vip .035in Vasc Collagen Valuelink Gw Insertion Shligia Ware - [id number] Implanted:Qty: 1 on 10/19/2020 by Ann Carl MD at [facility] IMPLANT Right: Johnie [employer] 07/03/2021 [id number] / / [id number] Insurance MEDICAID [place] MEDICARE C [facility] MEDICARE C [facility] [place]ICAID [place] Care Teams Shower Room Attendant Relationship Specialty Start Date End Date Giovany Wilder MD [address] [place] [address] PCP - General Family Medicine 10/16/20
--- OUTSIDE RECORDS SUMMARY | 2025-03-24 14:43 | XMS_ITS | Encounter Summary ---
Author Organization [facility] Address [address] [place] [phone] Phone Care Team Providers Care Fire Extinguisher Sprinkler Inspector Name Role Phone Giovany Wilder MD Primary Care Provider [phone] Reason for Visit * Reason Comments Med Refill Encounter Details Date Type Department Care Team (Late st Contact Info) Description 01/17/2021 Refill [place] [facility] [place] [phone] Tirso East DO [address] [address] Social History Tobacco Use Types [...] Description 05/05/2025 2:15 PM CDT Office Visit [place] [facility] [address] [address] Tirso East DO [address] [facility] 1 [place] [address] documented as of this encounter Visit Diagnoses Not on filedocumented in this encounter Care Teams Fire Extinguisher Sprinkler Inspector Relationship Specialty Start Date End Date Giovany Wilder MD [address] [place] [address] PCP - General Family Medicine 01/10/23 documented as of this encounter
--- OUTSIDE RECORDS SUMMARY | 2025-03-24 14:43 | XMS_ITS | Clinical Summary ---
Author Organization [facility] Address [address] [place] [address] Care Team Providers Care Hospital Internship Name Role Phone Unavailable Primary Care Provider [...] on file Legal Sex Female 1:54 AM MARKETING OPERATIONS ASSOCIATE Gender Identity Not on file Sexual Orientation [...] 05/21/20242023, 05/21/2023, 12/24/2022 BREAST CANCER SCREENING 12/26/2024 12/27/19 24, 12/27/2023, 12/27/2020, Additional history exists INFLUENZA VACCINE (#1) 2025 OSTEOPOROSIS SCREENING 05/23/2025 05/23/2020, 2017 COLORECTAL SCREENING 10/02/2032 10/02/2022, 10/02/2022, 09/18/2015, Additional history exists Colorectal Cancer Screening 10/02/2032 [facility] [id number] [place]
--- OUTSIDE RECORDS SUMMARY | 2025-03-24 14:43 | XMS_ITS | Patient Health Record ---
Author Organization [facility]ly [facility] [place] ([address]) Address [address] [place] [address] Care Team Providers Care Content Director Name Role Phone Dr. Malik Bowles Unavailable [phone] Nhi Olvera Unavailable [phone] Reason For Referral No Information Plan Of Treatment No Information Insurance Providers Payer Name Payer Address Payer Phone Subscriber Number Group Number Insured Name Patient Relationship to Insured Coverage Start Date Coverage End Date [employer] Medicare [address] [address] [place] [address] [phone] [id number] Catina Hui Self - patient is the insured
--- OUTSIDE RECORDS SUMMARY | 2025-03-24 14:43 | XMS_ITS | Encounter Summary ---
Author Organization [facility] Induction Manager [facility] Address [address] [place] [phone] Phone Care Team Providers Care Sleeve Ironer Name Role Phone Giovany Wilder MD Primary Care Provider [phone] Reason for Visit * Reason Comments Med Change Request Encounter Details Date Type Department Care Team (Late st Contact Info) Description 03/03/2024 Refill [place] [employer] [address] [address] Tirso East DO [address] [address] Social History Tobacco Use Types [...] Description 05/05/2025 2:15 PM CDT Office Visit [place] [employer] [address] [place] [address] Tirso East DO 12[address] [facility] 1 [place] [address] documented as of this encounter Visit Diagnoses Not on filedocumented in this encounter Care Teams Sleeve Ironer Relationship Specialty Start Date End Date Giovany Wilder MD [address] [place] [address] PCP - General Family Medicine 01/10/23 documented as of this encounter
--- OUTSIDE RECORDS SUMMARY | 2025-03-24 14:43 | XMS_ITS | Encounter Summary ---
Author Organization [facility] [employer] [facility] Address [address] [place] [phone] Phone Care Team Providers Care Public Relations Representative Name Role Phone Giovany Wilder MD Primary Care Provider [phone] Encounter Details Date Type Department Care Team (Late st Contact Info) Description 04/08/2024 Office Communication [place] [facility] [address] [address] Rosario Salvador CMA 12[address] [facility] 1 [place] [address] Social History Tobacco Use Types [...] 05/05/2025 2:15 PM CDT Office Visit [facility] [address] [place] [phone] Tirso East DO [address] [place] [address] documented as of this encounter Visit Diagnoses Not on filedocumented in this encounter Care Teams Public Relations Representative Relationship Specialty Start Date End Date Giovany Wilder MD [address] [address] PCP - General Family Medicine 01/10/23 documented as of this encounter
--- OUTSIDE RECORDS SUMMARY | 2025-03-24 14:43 | XMS_ITS | Encounter Summary ---
Author Organization [facility] [employer] [facility] Address [address] [place] [phone] Phone Care Team Providers Care Supervisor Cab Name Role Phone Giovany Wilder MD Primary Care Provider [phone] Reason for Visit * Reason Comments Med Refill Encounter Details Date Type Department Care Team (Late st Contact Info) Description 02/15/2021 Refill [place] [facility] [address] [address] Tirso East DO [address] [address] Social History Tobacco Use Types [...] Description 05/05/2025 2:15 PM CDT Office Visit [place] [facility] [address] [place] [address] Tirso East DO 12[address] [facility] 1 [place] [address] documented as of this encounter Visit Diagnoses Not on filedocumented in this encounter Care Teams Supervisor Cab Relationship Specialty Start Date End Date Giovany Wilder MD [address] [place] [address] PCP - General Family Medicine 01/10/23 documented as of this encounter
[2025-03-24 15:09] LABS: Hemoglobin A1C 6.5 % (<5.7)
== END 2025-03-24 14:38 | disposition home or self-care (01) ==
LOC: ANHSURGERY 14:39
PROVIDERS: Physician Assistant Surgical; PCP Family Medicine; Visit Provider Plastic Surgery
DX: L98.7 Excessive and redundant skin and subcutaneous tissue (principal)
CPT/HCPCS: 36415; 83036